=== PATIENT | male | born 1960 | race Caucasian/White ===

== ENCOUNTER 2017-01-07 16:46 | Inpatient (IN) | payer MEDICAID ==
[~2017-01-07] VITALS: Ht 190.5 cm; Wt 98.4 kg
[~2017-01-07 16:46] MED LIST: AMOX1TAB12 PO; AMOX1TAB64 PO; ATOR80TA75 PO; BUSP15TA PO; BUSP7.5T3 PO; CEFD300C2 PO; CEPH-368 PO; CEPH-376 PO; CITA20TA5 PO; CITA20TA9 PO; CITA40TA5 PO; CLIN300C93 PO; CLON0.2T PO; CLOP75TA22 PO; CYCL5TAB PO; DIVA250T14 PO; DOXY-168 PO; DULO30CA2 PO; ENOX100S5 SQ; FURO-92 PO; FURO20TA3 PO; GABA800T2 PO; HYDR-3144 PO; HYDR-3240 PO; HYDR-3307 PO; HYDR50CA PO; HYDR50TA13 PO; LISI-170 PO; METH-356 PO; METO50TA82 PO; METR500T4 PO; NAPR500T3 PO; NAPR550T3 PO; NICO1PAT4 TD; NICO1PAT5 TD; OMEP-110 PO; OMEP40CA3 PO; OXYC-229 PO; OXYC5TAB3 PO; PANT40TA3 PO; PANT40TA5 PO; POLY17PO5 PO; QUET400T PO; QUET400T4 PO; RIVA15TA PO; RIVA20TA PO; SENN1TAB7 PO; SERT100T5 PO; SIMV20TA PO; SIMV20TA3 PO; SULF1TAB24 PO; SULF1TAB3 PO; TOBR5DRO49 EACHEYE; TRAM1TAB6 PO; TRAM50TA2 PO; TRAZ100T15 PO; WARF10TA6 PO-COUM; WARF7.5T6 PO
[2017-01-07 17:38] LABS: DAU SCREEN DISCLAIMER
[2017-01-07 17:44] LABS: ASPARTATE AMINO TRANSFERASE 13 U/L (15-37); BLOOD UREA NITROGEN 11 mg/dL (7-18)
[2017-01-07 17:47] LABS: ACETAMINOPHEN < 2 mcg/mL (10-30)
[2017-01-07] MEDS ORDERED: CEFTAROLINE 600 MG in SODIUM CHLORIDE 0.9% 100 ML IV ONE (18:00)
[2017-01-07] MEDS ORDERED: SODIUM CHLORIDE FLUSH 10ML SYR IVF ONE (18:00)
[2017-01-07] MEDS ORDERED: SERT100T PO (18:59)
[2017-01-07] MEDS ORDERED: BISACODYL 10 MG SUPP PR PRN (19:30)
[2017-01-07] MEDS ORDERED: DOCUSATE 100 MG CAPSULE PO PRN (19:30)
[2017-01-07] MEDS ORDERED: ACETAMINOPHEN 325 MG TABLET PO PRN (19:30)
[2017-01-07] MEDS ORDERED: ONDANSETRON 2MG/ML, 2ML IVP PRN (19:30)
[2017-01-07] MEDS ORDERED: POLYETHYLENE GLYCOL 17 GM PACKET PO PRN (19:30)
[2017-01-07] MEDS ORDERED: NICOTINE 21 MG/24 HR PATCH.TD24 ONE (20:20)
[2017-01-07] MEDS ORDERED: ENOXAPARIN 40 MG/0.4 ML ONE (20:20)
[2017-01-07] MEDS: ENOXAPARIN 40 MG/0.4 ML SQ SCH (20:24)
[2017-01-07] MEDS: NICOTINE 21 MG/24 HR PATCH.TD24 TD SCH (20:25)
[2017-01-07] MEDS: SODIUM CHLORIDE 0.9% 1,000 ML IV SCH (20:29)
[2017-01-07] MEDS ORDERED: ACETAMINOPHEN 325 MG TABLET ONE (20:31)
[2017-01-07] MEDS: OMEPRAZOLE 10 MG CAPSULE.DR PO SCH ×2 (22:00→22:56)
[2017-01-07] MEDS: GABAPENTIN 400 MG CAPSULE PO SCH ×2 (22:00→22:56)
[2017-01-07 22:17] VITALS: BP 101/68
[2017-01-07] MEDS: QUETIAPINE 200 MG TABLET PO SCH (23:15)
[2017-01-08 01:02] VITALS: BP 101/68
[2017-01-08] MEDS ORDERED: QUET400T4 PO (04:48)
[2017-01-08] MEDS: SODIUM CHLORIDE 0.9% 1,000 ML IV SCH (05:22)
[2017-01-08] MEDS: CEFTAROLINE 600 MG in SODIUM CHLORIDE 0.9% 100 ML IV SCH ×2 (06:03→19:42)
[2017-01-08 06:19] LABS: HEMOGLOBIN 13.7 g/dL (13.7-18.0)
[2017-01-08 06:31] LABS: ASPARTATE AMINO TRANSFERASE 9 U/L (15-37); BLOOD UREA NITROGEN 8 mg/dL (7-18)
[2017-01-08 07:21] VITALS: BP 91/60
[2017-01-08] MEDS: SERTRALINE 100MG TABLET PO SCH (09:27)
[2017-01-08] MEDS: GABAPENTIN 400 MG CAPSULE PO SCH ×3 (09:27→20:37)
[2017-01-08] MEDS: OMEPRAZOLE 10 MG CAPSULE.DR PO SCH (09:27)
[2017-01-08 13:04] VITALS: BP 108/61
[2017-01-08] MEDS: ENOXAPARIN 40 MG/0.4 ML SQ SCH (19:40)
[2017-01-08] MEDS: NICOTINE 21 MG/24 HR PATCH.TD24 TD SCH (19:41)
[2017-01-08] MEDS: QUETIAPINE 200 MG TABLET PO SCH (20:37)
[2017-01-08 20:38] VITALS: BP 119/78
[2017-01-09 02:00] VITALS: BP 117/75
[2017-01-09] MEDS: OMEPRAZOLE 10 MG CAPSULE.DR PO SCH (07:24)
[2017-01-09] MEDS: GABAPENTIN 400 MG CAPSULE PO SCH ×3 (07:24→20:43)
[2017-01-09] MEDS: SERTRALINE 100MG TABLET PO SCH (07:24)
[2017-01-09 07:27] VITALS: BP 102/69
[2017-01-09] MEDS: CEFTAROLINE 600 MG in SODIUM CHLORIDE 0.9% 100 ML IV SCH ×2 (07:27→20:41)
[2017-01-09 13:49] VITALS: BP 125/65
[2017-01-09] MEDS: HYDROcodone/APAP 10/325 MG TABLET PO PRN (16:35)
[2017-01-09 20:14] VITALS: BP 129/79
[2017-01-09] MEDS: ENOXAPARIN 40 MG/0.4 ML SQ SCH (20:42)
[2017-01-09] MEDS: NICOTINE 21 MG/24 HR PATCH.TD24 TD SCH (20:43)
[2017-01-09] MEDS: QUETIAPINE 200 MG TABLET PO SCH (20:43)
[2017-01-10] MEDS: HYDROcodone/APAP 10/325 MG TABLET PO PRN (02:48)
[2017-01-10 03:21] VITALS: BP 115/64
[2017-01-10 07:33] VITALS: BP 121/78
[2017-01-10] MEDS: SERTRALINE 100MG TABLET PO SCH (07:58)
[2017-01-10] MEDS: CEFTAROLINE 600 MG in SODIUM CHLORIDE 0.9% 100 ML IV SCH (07:58)
[2017-01-10] MEDS: OMEPRAZOLE 10 MG CAPSULE.DR PO SCH (07:58)
[2017-01-10] MEDS: GABAPENTIN 400 MG CAPSULE PO SCH ×3 (07:58→20:13)
[2017-01-10 13:12] VITALS: BP 129/73
[2017-01-10] MEDS: LACTOBACILLUS CHEW TABLET PO SCH ×2 (16:25→20:13)
[2017-01-10 19:37] VITALS: BP 125/75
[2017-01-10] MEDS: QUETIAPINE 200 MG TABLET PO SCH (20:13)
[2017-01-10] MEDS: DOXYCYCLINE 100MG TABLET PO SCH (20:13)
[2017-01-10] MEDS: ENOXAPARIN 40 MG/0.4 ML SQ SCH (20:14)
[2017-01-10] MEDS: NICOTINE 21 MG/24 HR PATCH.TD24 TD SCH (20:14)
[2017-01-11 03:32] VITALS: BP 110/67
[2017-01-11 07:51] VITALS: BP 123/80
[2017-01-11] MEDS: LACTOBACILLUS CHEW TABLET PO SCH ×3 (08:27→21:02)
[2017-01-11] MEDS: SERTRALINE 100MG TABLET PO SCH (08:27)
[2017-01-11] MEDS: DOXYCYCLINE 100MG TABLET PO SCH ×2 (08:27→21:02)
[2017-01-11] MEDS: OMEPRAZOLE 10 MG CAPSULE.DR PO SCH (08:27)
[2017-01-11] MEDS: GABAPENTIN 400 MG CAPSULE PO SCH ×3 (08:27→21:02)
[2017-01-11 12:53] VITALS: BP 101/69
[2017-01-11 19:22] VITALS: BP 119/74
[2017-01-11] MEDS: HYDROcodone/APAP 10/325 MG TABLET PO PRN (20:00)
[2017-01-11] MEDS: NICOTINE 21 MG/24 HR PATCH.TD24 TD SCH (20:01)
[2017-01-11] MEDS: ENOXAPARIN 40 MG/0.4 ML SQ SCH (20:01)
[2017-01-11] MEDS: QUETIAPINE 200 MG TABLET PO SCH (21:03)
[2017-01-12 01:06] VITALS: BP 102/64
[2017-01-12] MEDS: HYDROcodone/APAP 10/325 MG TABLET PO PRN ×3 (05:25→19:52)
[2017-01-12 08:30] VITALS: BP 107/69
[2017-01-12] MEDS: LACTOBACILLUS CHEW TABLET PO SCH ×3 (08:52→19:51)
[2017-01-12] MEDS: OMEPRAZOLE 10 MG CAPSULE.DR PO SCH (08:52)
[2017-01-12] MEDS: DOXYCYCLINE 100MG TABLET PO SCH ×2 (08:52→19:51)
[2017-01-12] MEDS: SERTRALINE 100MG TABLET PO SCH (08:52)
[2017-01-12] MEDS: GABAPENTIN 400 MG CAPSULE PO SCH ×3 (08:52→19:51)
[2017-01-12 14:31] VITALS: BP 118/79
[2017-01-12] MEDS: QUETIAPINE 200 MG TABLET PO SCH (19:50)
[2017-01-12] MEDS: NICOTINE 21 MG/24 HR PATCH.TD24 TD SCH (19:51)
[2017-01-12] MEDS: ENOXAPARIN 40 MG/0.4 ML SQ SCH (19:52)
[2017-01-12 19:53] VITALS: BP 114/80
[2017-01-13 02:36] VITALS: BP 108/72
[2017-01-13] MEDS: SERTRALINE 100MG TABLET PO SCH (07:42)
[2017-01-13] MEDS: OMEPRAZOLE 10 MG CAPSULE.DR PO SCH (07:42)
[2017-01-13] MEDS: GABAPENTIN 400 MG CAPSULE PO SCH ×3 (07:42→20:13)
[2017-01-13] MEDS: DOXYCYCLINE 100MG TABLET PO SCH ×2 (07:42→20:13)
[2017-01-13] MEDS: LACTOBACILLUS CHEW TABLET PO SCH ×3 (07:42→20:13)
[2017-01-13 07:47] VITALS: BP 107/63
[2017-01-13 13:26] VITALS: BP 106/78
[2017-01-13 19:23] VITALS: BP 114/66
[2017-01-13] MEDS: NICOTINE 21 MG/24 HR PATCH.TD24 TD SCH (20:12)
[2017-01-13] MEDS: QUETIAPINE 200 MG TABLET PO SCH (20:13)
[2017-01-13] MEDS: ENOXAPARIN 40 MG/0.4 ML SQ SCH (20:13)
[2017-01-13] MEDS: HYDROcodone/APAP 10/325 MG TABLET PO PRN (20:13)
[2017-01-14 01:41] VITALS: BP 104/64
[2017-01-14 06:35] VITALS: BP 91/58
[2017-01-14] MEDS: SERTRALINE 100MG TABLET PO SCH (08:57)
[2017-01-14] MEDS: DOXYCYCLINE 100MG TABLET PO SCH ×2 (08:57→20:58)
[2017-01-14] MEDS: LACTOBACILLUS CHEW TABLET PO SCH ×3 (08:57→20:58)
[2017-01-14] MEDS: GABAPENTIN 400 MG CAPSULE PO SCH ×3 (08:57→20:58)
[2017-01-14] MEDS: OMEPRAZOLE 10 MG CAPSULE.DR PO SCH (08:57)
[2017-01-14 13:05] VITALS: BP 109/81
[2017-01-14] MEDS: HYDROcodone/APAP 10/325 MG TABLET PO PRN ×2 (15:49→20:59)
[2017-01-14 19:16] VITALS: BP 114/80
[2017-01-14] MEDS: NICOTINE 21 MG/24 HR PATCH.TD24 TD SCH (20:56)
[2017-01-14] MEDS: ENOXAPARIN 40 MG/0.4 ML SQ SCH (20:57)
[2017-01-14] MEDS: QUETIAPINE 200 MG TABLET PO SCH (20:58)
[2017-01-15] MEDS: HYDROcodone/APAP 10/325 MG TABLET PO PRN ×2 (01:00→08:47)
[2017-01-15 01:40] VITALS: BP 109/76
[2017-01-15 07:31] VITALS: BP 115/73
[2017-01-15] MEDS: OMEPRAZOLE 10 MG CAPSULE.DR PO SCH (08:11)
[2017-01-15] MEDS: LACTOBACILLUS CHEW TABLET PO SCH ×3 (08:11→21:24)
[2017-01-15] MEDS: SERTRALINE 100MG TABLET PO SCH (08:11)
[2017-01-15] MEDS: GABAPENTIN 400 MG CAPSULE PO SCH ×3 (08:11→21:24)
[2017-01-15] MEDS: DOXYCYCLINE 100MG TABLET PO SCH ×2 (08:11→21:24)
[2017-01-15 12:52] VITALS: BP 125/82
[2017-01-15 19:26] VITALS: BP 128/85
[2017-01-15] MEDS: ENOXAPARIN 40 MG/0.4 ML SQ SCH (21:23)
[2017-01-15] MEDS: NICOTINE 21 MG/24 HR PATCH.TD24 TD SCH (21:24)
[2017-01-15] MEDS: QUETIAPINE 200 MG TABLET PO SCH (21:24)
[2017-01-16 02:16] VITALS: BP 118/66
[2017-01-16 07:47] VITALS: BP 120/70
[2017-01-16] MEDS: SERTRALINE 100MG TABLET PO SCH (08:57)
[2017-01-16] MEDS: DOXYCYCLINE 100MG TABLET PO SCH (08:57)
[2017-01-16] MEDS: GABAPENTIN 400 MG CAPSULE PO SCH ×2 (08:57→17:21)
[2017-01-16] MEDS: LACTOBACILLUS CHEW TABLET PO SCH ×2 (08:57→17:20)
[2017-01-16] MEDS: OMEPRAZOLE 10 MG CAPSULE.DR PO SCH (08:57)
[2017-01-16 12:42] VITALS: BP 126/72
[2017-01-16] MEDS ORDERED: DOXY100T PO (15:40)
== END 2017-01-16 17:20 | disposition home or self-care (01) | DRG 603 ==
LOC: ED 18:32 → EDIP 18:52 → OBSVTOIN 19:22 → 3NE 21:30
DX: L03.115 Cellulitis of right lower limb (principal); R45.851 Suicidal ideations; I73.9 Peripheral vascular disease, unspecified; I10 Essential (primary) hypertension; F31.9 Bipolar disorder, unspecified; F41.9 Anxiety disorder, unspecified; F20.9 Schizophrenia, unspecified; F17.210 Nicotine dependence, cigarettes, uncomplicated; K27.9 Peptic ulcer, site unspecified, unspecified as acute or chronic, without hemorrhage or perforation; Z89.512 Acquired absence of left leg below knee; Z86.73 Personal history of transient ischemic attack (TIA), and cerebral infarction without residual deficits; Z86.718 Personal history of other venous thrombosis and embolism; Z88.8 Allergy status to other drugs, medicaments and biological substances; Z79.899 Other long term (current) drug therapy; Z81.8 Family history of other mental and behavioral disorders; Z89.421 Acquired absence of other right toe(s); Z86.14 Personal history of Methicillin resistant Staphylococcus aureus infection; Z95.828 Presence of other vascular implants and grafts; Z98.890 Other specified postprocedural states; Z88.6 Allergy status to analgesic agent
CPT/HCPCS: 36415; 80053; 80061; 80307; 80329; 83735; 84100; 85025; 85651; 86140; 87081; 93926; 96365; 96366; J0712; J1650; G0378; G0480; J7030

== ENCOUNTER 2017-03-26 20:16 | Inpatient (IN) | payer MEDICAID ==
[~2017-03-26] VITALS: Ht 190.5 cm; Wt 91.3 kg
[~2017-03-26 20:16] MED LIST changes: -CEFD300C2 PO; +CEFD300C37 PO; +DOXY100T PO; -NAPR550T3 PO; +NAPR550T30 PO; +SERT100T PO
[2017-03-26] MEDS ORDERED: SODIUM CHLORIDE 0.9% 1,000 ML IV ONE (20:23)
[2017-03-26] MEDS ORDERED: SODIUM CHLORIDE 0.9% 1,000ML IVBOLUS ONE (20:30)
[2017-03-26 21:12] LABS: BLOOD UREA NITROGEN 17 mg/dL (7-18)
[2017-03-26] MEDS ORDERED: MORPHINE SULFATE 4 MG/ML, 1ML IVPush ONE (21:30)
[2017-03-26] MEDS ORDERED: HYDROcodone/APAP 5/325 TABLET ONE (22:07)
[2017-03-26] MEDS ORDERED: HYDROcodone/APAP 5/325 TABLET PO ONE (22:30)
[2017-03-27] MEDS ORDERED: HEPARIN 5,000 UNITS/ML, 1ML IV ONE (00:30)
[2017-03-27] MEDS ORDERED: SODIUM CHLORIDE FLUSH 10ML SYR IVF ONE (00:30)
[2017-03-27 00:47] LABS: ANTI-Xa-UNFRACTIONATED HEP 0.07 IU/mL (0.30-0.70)
[2017-03-27] MEDS ORDERED: HEPARIN 25,000 UNITS/500ML PMX 500 ML ONE (01:02)
[2017-03-27] MEDS ORDERED: HEPARIN 5,000 UNITS/ML, 1ML ONE (01:02)
[2017-03-27] MEDS: HEPARIN 25,000 UNITS/500ML PMX 500 ML IV PRN ×2 (01:10→22:15)
[2017-03-27] MEDS ORDERED: TRAZODONE 50MG TABLET PO PRN (01:30)
[2017-03-27] MEDS ORDERED: BISACODYL 10 MG SUPP PR PRN (01:30)
[2017-03-27] MEDS ORDERED: DOCUSATE 100 MG CAPSULE PO PRN (01:30)
[2017-03-27] MEDS ORDERED: ACETAMINOPHEN 325 MG TABLET PO PRN (01:30)
[2017-03-27] MEDS ORDERED: POLYETHYLENE GLYCOL 17 GM PACKET PO PRN (01:30)
[2017-03-27] MEDS ORDERED: LABETALOL 5MG/ML, 20ML IVPush PRN (01:30)
[2017-03-27] MEDS: NICOTINE 7 MG/24 HR PATCH.TD24 TD SCH (01:30)
[2017-03-27 02:15] VITALS: BP 123/76
[2017-03-27] MEDS ORDERED: QUETIAPINE 100MG TABLET PO ONE (03:00)
[2017-03-27] MEDS: SODIUM CHLORIDE 0.9% 1,000 ML IV SCH ×3 (06:40→23:30)
[2017-03-27 07:51] VITALS: BP 126/67
[2017-03-27] MEDS: GABAPENTIN 400 MG CAPSULE PO SCH ×3 (09:17→22:13)
[2017-03-27] MEDS: SERTRALINE 100MG TABLET PO SCH (09:18)
[2017-03-27] MEDS ORDERED: OMNIPAQUE 350 MG/ML, 100ML BOTTLE ONE (10:04)
[2017-03-27] MEDS: HEPARIN 5,000 UNITS/ML, 1ML IV PRN (13:32)
[2017-03-27 13:55] VITALS: BP 145/71
[2017-03-27] MEDS: HYDROcodone/APAP 5/325 TABLET PO PRN ×2 (14:18→22:14)
[2017-03-27 19:56] VITALS: BP 130/75
[2017-03-27] MEDS: QUETIAPINE 200 MG TABLET PO SCH (22:13)
[2017-03-28] MEDS: NICOTINE 7 MG/24 HR PATCH.TD24 TD SCH (01:30)
[2017-03-28 02:48] VITALS: BP 118/69
[2017-03-28 08:43] VITALS: BP 126/78
[2017-03-28] MEDS: GABAPENTIN 400 MG CAPSULE PO SCH ×3 (08:49→21:04)
[2017-03-28] MEDS: SERTRALINE 100MG TABLET PO SCH (08:49)
[2017-03-28] MEDS: HYDROcodone/APAP 5/325 TABLET PO PRN ×3 (08:49→21:04)
[2017-03-28] MEDS: HEPARIN 5,000 UNITS/ML, 1ML IV PRN (08:50)
[2017-03-28] MEDS: HEPARIN 25,000 UNITS/500ML PMX 500 ML IV PRN ×2 (08:50→16:53)
[2017-03-28] MEDS: SODIUM CHLORIDE 0.9% 1,000 ML IV SCH ×2 (09:38→19:27)
[2017-03-28 15:50] VITALS: BP 122/80
[2017-03-28 20:00] VITALS: BP 136/84
[2017-03-28] MEDS: QUETIAPINE 200 MG TABLET PO SCH (21:04)
[2017-03-29] MEDS: NICOTINE 7 MG/24 HR PATCH.TD24 TD SCH (01:30)
[2017-03-29 03:23] VITALS: BP 136/81
[2017-03-29] MEDS: HYDROcodone/APAP 5/325 TABLET PO PRN ×4 (05:28→20:03)
[2017-03-29] MEDS: SODIUM CHLORIDE 0.9% 1,000 ML IV SCH ×2 (05:28→15:30)
[2017-03-29 07:33] VITALS: BP 130/79
[2017-03-29] MEDS: GABAPENTIN 400 MG CAPSULE PO SCH ×3 (09:22→20:03)
[2017-03-29] MEDS: SERTRALINE 100MG TABLET PO SCH (09:22)
[2017-03-29] MEDS: HEPARIN 25,000 UNITS/500ML PMX 500 ML IV PRN (10:09)
[2017-03-29] MEDS ORDERED: MORPHINE SULFATE 4 MG/ML, 1ML IVPush PRN (11:30)
[2017-03-29] MEDS ORDERED: LIDOCAINE GEL 2%, 5ML TP ONE (11:30)
[2017-03-29 15:46] VITALS: BP 131/83
[2017-03-29] MEDS: QUETIAPINE 200 MG TABLET PO SCH (20:03)
[2017-03-29 20:46] VITALS: BP 131/86
[2017-03-30] MEDS: NICOTINE 7 MG/24 HR PATCH.TD24 TD SCH (01:24)
[2017-03-30] MEDS: HYDROcodone/APAP 5/325 TABLET PO PRN ×2 (01:24→20:14)
[2017-03-30] MEDS: SODIUM CHLORIDE 0.9% 1,000 ML IV SCH ×3 (01:25→21:30)
[2017-03-30 02:48] VITALS: BP 114/63
[2017-03-30] MEDS: HEPARIN 25,000 UNITS/500ML PMX 500 ML IV PRN (03:16)
[2017-03-30 07:20] VITALS: BP 127/75
[2017-03-30] MEDS: GABAPENTIN 400 MG CAPSULE PO SCH ×3 (09:55→20:14)
[2017-03-30] MEDS: SERTRALINE 100MG TABLET PO SCH (09:55)
[2017-03-30] MEDS: RIVAROXABAN 20 MG TABLET PO SCH (10:31)
[2017-03-30 12:33] VITALS: BP 138/80
[2017-03-30] MEDS ORDERED: LIDOCAINE 2%, 10ML INFIL ONE (13:30)
[2017-03-30 19:12] VITALS: BP 124/83
[2017-03-30] MEDS: QUETIAPINE 200 MG TABLET PO SCH (20:14)
[2017-03-31] MEDS: NICOTINE 7 MG/24 HR PATCH.TD24 TD SCH (01:28)
[2017-03-31 01:48] VITALS: BP 117/71
[2017-03-31] MEDS: RIVAROXABAN 20 MG TABLET PO SCH (05:46)
[2017-03-31] MEDS: SODIUM CHLORIDE 0.9% 1,000 ML IV SCH ×2 (07:30→17:30)
[2017-03-31 07:51] VITALS: BP 122/71
[2017-03-31] MEDS ORDERED: HYDR-3240 PO (08:52)
[2017-03-31] MEDS ORDERED: NICO1PAT10 TD (08:52)
[2017-03-31] MEDS ORDERED: POLY17PO5 PO (08:52)
[2017-03-31] MEDS ORDERED: ACET325T14 PO (08:52)
[2017-03-31] MEDS: GABAPENTIN 400 MG CAPSULE PO SCH ×3 (08:53→21:58)
[2017-03-31] MEDS: SERTRALINE 100MG TABLET PO SCH (08:54)
[2017-03-31] MEDS: HYDROcodone/APAP 5/325 TABLET PO PRN ×2 (10:49→21:59)
[2017-03-31] MEDS: RIVAROXABAN 15 MG TABLET PO SCH (10:50)
[2017-03-31 12:53] VITALS: BP 114/69
[2017-03-31] MEDS ORDERED: morphine SULFATE 10 MG/ML, 1ML IVPush ONE (14:00)
[2017-03-31 19:08] VITALS: BP 117/77
[2017-03-31] MEDS: QUETIAPINE 200 MG TABLET PO SCH (21:59)
[2017-04-01] MEDS: SODIUM CHLORIDE 0.9% 1,000 ML IV SCH ×2 (00:42→13:30)
[2017-04-01 00:59] VITALS: BP 113/73
[2017-04-01] MEDS: NICOTINE 7 MG/24 HR PATCH.TD24 TD SCH (05:14)
[2017-04-01 07:52] VITALS: BP 108/60
[2017-04-01] MEDS: GABAPENTIN 400 MG CAPSULE PO SCH ×3 (08:03→21:31)
[2017-04-01] MEDS: SERTRALINE 100MG TABLET PO SCH (08:04)
[2017-04-01] MEDS: RIVAROXABAN 15 MG TABLET PO SCH ×2 (08:10→18:19)
[2017-04-01] MEDS ORDERED: TRAM50TA2 PO (08:21)
[2017-04-01] MEDS ORDERED: SIMV20TA PO (08:42)
[2017-04-01] MEDS: HYDROcodone/APAP 5/325 TABLET PO PRN ×2 (12:51→18:32)
[2017-04-01 15:08] VITALS: BP 100/69
[2017-04-01 18:28] VITALS: BP 102/46
[2017-04-01] MEDS: QUETIAPINE 200 MG TABLET PO SCH (21:32)
[2017-04-02 02:59] VITALS: BP 102/54
[2017-04-02] MEDS: NICOTINE 7 MG/24 HR PATCH.TD24 TD SCH (05:17)
[2017-04-02] MEDS: HYDROcodone/APAP 5/325 TABLET PO PRN ×3 (05:25→20:52)
[2017-04-02 06:39] VITALS: BP 115/63
[2017-04-02] MEDS: SERTRALINE 100MG TABLET PO SCH (09:20)
[2017-04-02] MEDS: GABAPENTIN 400 MG CAPSULE PO SCH ×3 (09:20→20:47)
[2017-04-02] MEDS: RIVAROXABAN 15 MG TABLET PO SCH ×2 (09:20→16:35)
[2017-04-02 12:25] VITALS: BP 116/79
[2017-04-02 19:00] VITALS: BP 121/66
[2017-04-02] MEDS: QUETIAPINE 200 MG TABLET PO SCH (20:47)
[2017-04-03 03:45] VITALS: BP 122/68
[2017-04-03] MEDS: NICOTINE 7 MG/24 HR PATCH.TD24 TD SCH (04:39)
[2017-04-03 06:37] VITALS: BP 117/67
[2017-04-03] MEDS: SERTRALINE 100MG TABLET PO SCH (08:33)
[2017-04-03] MEDS: GABAPENTIN 400 MG CAPSULE PO SCH ×3 (08:33→22:30)
[2017-04-03] MEDS: RIVAROXABAN 15 MG TABLET PO SCH ×2 (08:33→18:21)
[2017-04-03 12:19] VITALS: BP 109/64
[2017-04-03] MEDS: HYDROcodone/APAP 5/325 TABLET PO PRN ×2 (18:21→22:32)
[2017-04-03 19:48] VITALS: BP 122/75
[2017-04-03] MEDS: QUETIAPINE 200 MG TABLET PO SCH (22:30)
[2017-04-04 02:18] VITALS: BP 103/48
[2017-04-04] MEDS: HYDROcodone/APAP 5/325 TABLET PO PRN ×2 (04:33→14:29)
[2017-04-04] MEDS: NICOTINE 7 MG/24 HR PATCH.TD24 TD SCH (04:35)
[2017-04-04 08:00] VITALS: BP 103/48
[2017-04-04] MEDS: SERTRALINE 100MG TABLET PO SCH (09:26)
[2017-04-04] MEDS: GABAPENTIN 400 MG CAPSULE PO SCH (09:26)
[2017-04-04] MEDS: RIVAROXABAN 15 MG TABLET PO SCH (09:26)
[2017-04-04 14:00] VITALS: BP 103/48
[2017-04-04] MEDS ORDERED: RIVA20TA PO (16:18)
[2017-04-04] MEDS ORDERED: RIVA15TA PO (16:18)
== END 2017-04-04 17:06 | disposition home or self-care (01) | DRG 301 ==
LOC: ED 23:59 → EDIP 03-27 00:07 → 4NOR 03-27 01:59 → 3NE 04-01 17:38
PROVIDERS: ADMIT Internal Medicine; ATTEND Internal Medicine
PROC: 8E0YXY8 Suture Removal from Lower Extremity (ICD-10-PCS; principal; 2017-03-31)
DX: I82.431 Acute embolism and thrombosis of right popliteal vein (principal); F20.9 Schizophrenia, unspecified; I10 Essential (primary) hypertension; I73.9 Peripheral vascular disease, unspecified; R53.81 Other malaise; F31.9 Bipolar disorder, unspecified; F41.9 Anxiety disorder, unspecified; F17.210 Nicotine dependence, cigarettes, uncomplicated; Z79.899 Other long term (current) drug therapy; Z88.6 Allergy status to analgesic agent; Z86.718 Personal history of other venous thrombosis and embolism; Z86.73 Personal history of transient ischemic attack (TIA), and cerebral infarction without residual deficits; Z89.511 Acquired absence of right leg below knee; Z89.512 Acquired absence of left leg below knee; Z71.41 Alcohol abuse counseling and surveillance of alcoholic; Z71.6 Tobacco abuse counseling
CPT/HCPCS: 36415; 71260; 80048; 82040; 83605; 84145; 85025; 85520; 85610; 85730; 87040; 96374; J1644; J3490; Q9967; J2270; J7030